=== PATIENT | female | born 1960 | race Caucasian/White ===

== ENCOUNTER 2020-12-10 11:32 | Emergency (ER) | payer MEDICARE, OTHER ==
[2020-12-10 11:38] VITALS: BP 134/75; PULSE 74; RESP 20; TEMP 98
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
--- NOTE | 2020-12-10 14:17 | US ---
EXAMINATION TYPE: US extremity nonvasc complt RT DATE OF EXAM: 12/10/2020 COMPARISON: NONE CLINICAL HISTORY: mass right lower extremity. Pt states palpable mass right posterior calf x 1 1/2 mo nths 6.8 x 1.3 x 5.8 cm fluid collection with septations within right calf in area of pt's palpable IMPRESSION: There is a 6.8 cm fluid collection with septations in the right calf correlate for serom a or hematoma. Abscess not entirely excluded correlate clinically. Follow-up MRI recommended.
== END 2020-12-10 15:02 | disposition home or self-care (01) ==
LOC: EC 11:32
DX: T79.2XXA Traumatic secondary and recurrent hemorrhage and seroma, initial encounter (principal); E11.9 Type 2 diabetes mellitus without complications; I10 Essential (primary) hypertension; E78.5 Hyperlipidemia, unspecified; F41.9 Anxiety disorder, unspecified; E78.00 Pure hypercholesterolemia, unspecified; F32.9 Major depressive disorder, single episode, unspecified; F12.90 Cannabis use, unspecified, uncomplicated; Z87.891 Personal history of nicotine dependence
CPT/HCPCS: 99283